=== PATIENT | female | born 1985 | race American Indian/Alaskan Native ===

== ENCOUNTER 2019-02-27 08:53 | Emergency (ER) | payer OTHER ==
[~2019-02-27] VITALS: Ht 152.4 cm; Wt 72.6 kg
[~2019-02-27 08:53] MED LIST: ZANTAC300 MG PO; ZOFRAN4 MG PO
== END 2019-02-27 13:33 | disposition home or self-care (01) ==
LOC: ER 08:53
DX: R11.11 Vomiting without nausea (principal)